=== PATIENT | male | born 1995 | race Caucasian/White ===

== ENCOUNTER 2018-02-13 10:10 | Emergency (ER) | payer SELFPAY ==
[~2018-02-13] VITALS: Ht 180.3 cm; Wt 90.7 kg
[2018-02-13] MEDS ORDERED: CLINDAMYCIN HC300 MG PO (10:18)
== END 2018-02-13 10:26 | disposition home or self-care (01) ==
LOC: ER 10:10
DX: L03.115 Cellulitis of right lower limb (principal); S90.561A Insect bite (nonvenomous), right ankle, initial encounter
CPT/HCPCS: 99282